=== PATIENT | female | born 1990 | race Caucasian/White ===

== ENCOUNTER 2016-11-12 08:11 | Emergency (ER) | payer OTHER, MEDICAID ==
[~2016-11-12] VITALS: Ht 162.6 cm; Wt 60.8 kg
[~2016-11-12 08:11] MED LIST: CORTIS10A LEFT EAR; MMW SWISH-SPIT; ZITH250T PO
[2016-11-12 08:16] VITALS: BP 113/79; PULSE 83; RESP 16; TEMP 99.1; O2SAT 100
[2016-11-12] MEDS ORDERED: PENICILLIN G BENZATHINE 1,200,000 UNITS/2 ML SYRINGE IM ONE (10:00)
[2016-11-12] MEDS ORDERED: DEXAMETHASONE SOD PHOS 4 MG/ML VIAL IM ONE (10:00)
--- NOTE | 2016-11-12 10:05 | PD ---
HPI Chief Complaint: ENT Complaint Time Seen by Provider: 09:42 Travel History International Travel<30 days: No Contact w/Intl Traveler<30days: No Traveled to known affect area: No History of Present Illness HPI To 26 year-old woman who presents to the emergency department complaining of severe sore throat starting yesterday. She is a history of strep throat. She was previously recommended to get her tonsils taken out. She's done well until yesterday started developing soreness in her throat, painful swallowing, difficulty speaking, and today had worsening painful sore throat. No shortness of breath. No inability to swallow or difficulty swallowing, just painful swallowing. Highest fever was up to 99 9 at home. Subjective chills. She otherwise had been feeling generally well. History Past Medical History Medical History: Denies Significant Hx LMP: tubal Social History Alcohol Use: No Tobacco Use: No Allergies-Medications (Allergen,Severity, Reaction): Coded Allergies: Amoxicillin (Verified Adverse Reaction, Intermediate, GI UPSET, 11/12/16) Reported Meds & Prescriptions Reported Meds & Active Scripts Active No Active Prescriptions or Reported Medications Review of Systems Except as stated in HPI: all other systems reviewed are Neg Physical Exam Narrative GENERAL: Well-appearing 26 year-old woman, no acute distress. SKIN: Warm and dry. HEAD: Atraumatic. Normocephalic. EYES: Pupils equal and round. No scleral icterus. No injection or drainage. ENT: No nasal bleeding or discharge. Mucous membranes pink and moist. Symmetric Tonsillar hypertrophy with purulent exudates. No uvular deviation. NECK: Trachea midline. No JVD. Anterior cervical adenopathy. CARDIOVASCULAR: Warm and well perfused. RESPIRATORY: Normal rate and effort. GASTROINTESTINAL: Abdomen soft, non-tender, nondistended. Hepatic and splenic margins not palpable. MUSCULOSKELETAL: No obvious deformities. Data Data Last Documented VS Vital Signs Date Time Temp Pulse Resp B/P Pulse Ox O2 Delivery O2 Flow Rate FiO2 11/12/16 08:16 99.1 83 16 113/79 100 Orders Penicillin G Benzathine Inj (Bicillin L- (11/12/16 10:00) Dexamethasone Inj (Decadron Inj) (11/12/16 10:00) MDM Medical Decision Making Medical Screen Exam Complete: Yes Emergency Medical Condition: Yes Differential Diagnosis Strep throat, tonsillitis, pharyngitis, other Narrative Course Medical decision making 18 year-old woman with fever, sore throat, tonsillar hypertrophy and exudates, cervical adenopathy, in minimal cough suggestive of strep throat. Recommend empiric treatment with steroids, antibiotics, NSAIDs, outpatient follow-up. Diagnosis Primary Impression: Strep pharyngitis Additional Instructions: Take Aleve as needed for sore throat. Return to the emergency department for any worsening trouble swallowing, any trouble breathing, or any other new or worsening symptoms. Med/Other Pt SpecificInfo: No Change to Meds Scripts No Active Prescriptions or Reported Meds Disposition: 01 DISCHARGE HOME Condition: Stable Dejon Simons MD Nov 12, 2016 10:05
[2016-11-12 10:57] VITALS: BP 95/57
== END 2016-11-12 10:59 | disposition home or self-care (01) ==
LOC: PHED 08:11
DX: J02.0 Streptococcal pharyngitis (principal); R05 Cough; R50.9 Fever, unspecified
CPT/HCPCS: 96372; 99283; J0561; J1100